=== PATIENT | male | born 1950 | race Caucasian/White ===

== ENCOUNTER 2018-06-04 11:42 | Inpatient (IN) ==
[2018-06-04] MEDS ORDERED: VANCOMYCIN 1 GM/NS 1 GM/250 ML IVPB IV ONE (12:14)
[2018-06-04] MEDS ORDERED: ZOFRAN IV PRN (12:14)
[2018-06-04] MEDS ORDERED: TYLENOL PO PRN (12:14)
--- NOTE | 2018-06-04 12:24 | HISTORY AND PHYSICAL ---
HISTORY OF PRESENT ILLNESS: This is a 68-year-old patient well known to me with past medical history of: 1. Arrhythmia. 2. Abnormal EKG. 3. Coronary artery disease. On 02/05/2013, he had a percutaneous transluminal coronary angioplasty to the distal RCA, had previous stent. Ejection fraction at that time 60%. On 08/19/2010, he had a non-ST elevation NC. He then had a PTCA to the LAD and a PTCA to RCA. His ejection fraction at that time was 55% to 60%. 4. Hypertension. 5. Hyperlipidemia. 6. Gastroesophageal reflux disease. 7. History of myocardial infarction, as above. 8. Some osteoarthritis. 9. Benign prostatic hypertrophy. 10. Gastroesophageal reflux. 11. Hyperlipidemia. The patient presented to my office. He stated that last week, he had a cyst, what appeared to be a fluctuant cyst on the right distal arm, and it seems to be resolving. It did have some purulent material. Then, he developed, on his left proximal finger between the interphalangeal joint and the middle, he had another area of swelling that looked like a pustule, but he had swelling and edema that extended from the finger into the hand. He denies any chills, but when he came into my office, he had a temperature of 99.8, which is fever, but concerned about the swelling, concerned about the tenderness, concerned about possibility of developing more aggressive bacterial infections. So, I am going to put him in the hospital and cover him for gram-positive as well as gram-negative. He did go to a park in [place] and he was in the water. He denies known injury to that finger, insect bite, or puncture wound. SOCIAL HISTORY: Negative for alcohol or tobacco. FAMILY HISTORY: Positive for some heart disease, coronary artery disease. He does have positive coronary artery disease in his father and brother. ALLERGIES: He has no known drug allergies. Review of Systems REVIEW OF SYSTEMS: Constitutional: He does not report any weight gain or loss. No fever or chills. HEENT: Unremarkable. Respiratory: No increased work of breathing or dyspnea. Cardiovascular: No chest pain or tachy palpitation. GI/: Past history of gastroesophageal reflux. No change in bowels or urination. Immunologic/Hematologic: No significant history. PHYSICAL EXAMINATION: GENERAL: He is well developed, well nourished, awake and alert, oriented x3, very pleasant. HEENT: Pupils are equal. NECK: He had no distended neck veins. LUNGS: Clear in all lung mason. CARDIOVASCULAR: Regular rhythm and rate without murmur or S3. ABDOMEN: No complaints. No distention. EXTREMITIES: No pedal edema. SKIN: He has no other complaints of rash or oral or nasal mucosa lesions, but on his right wrist, on the radial side, he had a healing subcutaneous infection. On the left 1st proximal finger, he has an active swelling, about a 2 cm swelling/rising with surrounding erythema and edema. ASSESSMENT AND PLAN: 1. Cellulitis and soft tissue infection. Concerned about how rapidly this came up and I want make sure he does not develop a necrotizing type of infection. I am going to cover him for gram-positive and -negative. Will elevate that hand. We will check some labs, check blood cultures, and admit to the hospital. He is not allergic to any antibiotics. I think I will put him on Zosyn and vancomycin at this point. 2. Coronary artery disease. No active ischemia. History of stents. He has a history of myocardial infarction, but has good left ventricular function. 3. Hypertension. 4. Hypercholesterolemia. 5. History of benign prostatic hypertrophy. cc: William Clark MD
[2018-06-04] MEDS ORDERED: VANCOMYCIN IV PER PHARMACY MISC SCH (12:30)
[2018-06-04 13:09] LABS: BASO# 0.04 X1000 (0.0-0.2); BASO% 0.4 % (0.0-0.8); EOS# 0.12 X1000 (0.0-0.7); EOS% 1.1 % (0.0-10.0); HEMATOCRIT 45.5 % (42.0-52.0); HEMOGLOBIN 15.1 g/dL (14.0-18.0); IMM GRAN# 0.02 X1000 (0.0-0.04); IMM GRAN% 0.2 % (0.0-0.5); LYMPH# 1.32 X1000 (1.2-3.4); MCH 31.3 PG (27-31); MCHC 33.2 g/dL (33-37); MCV 94.2 FL (81-99); MONO# 0.86 X1000 (0.11-0.59); MONO% 7.8 % (1.7-9.3); MPV 10.5 FL (7.4-10.4); NEUT# 8.64 X1000 (1.4-6.5); NEUT% 78.5 % (42.2-75.2); PLT 202 X1000 (130-400); RBC 4.83 XMIL (4.7-6.1); RDW 13.8 % (11.5-14.5)
[2018-06-04 13:36] LABS: AGAP 10; ALB/GLOB RATIO 1.8; ALBUMIN 4.8 g/dL (3.5-5.0); ALKALINE PHOSPHATASE 80 U/L (32-122); BUN 16 mg/dL (8-22); CALCIUM 9.5 mg/dL (8.8-10.2); CHLORIDE 100 mmol/L (98-107); COSMO 278; CREATININE 0.9 mg/dL (0.7-1.2); ESTIMATED GFR > 60; GLUCOSE 110 mg/dL (70-104); GOT 14 U/L (10-34); GPT 13 U/L (10-44); POTASSIUM 3.8 mmol/L (3.5-5.1); SODIUM 138 mmol/L (136-145); TCO2 28 mmol/L (25-35); TOTAL BILIRUBIN 0.63 mg/dL (0.20-1.00); TOTAL PROTEIN 7.5 g/dL (6.3-8.3)
[2018-06-04] MEDS: NS 1,000 ML IV SCH (14:37)
[2018-06-04] MEDS: ZOSYN 4.5 GM in NS 100 ML IV SCH ×2 (14:37→20:44)
[2018-06-04] MEDS ORDERED: CLINDAMYCIN 600 MG/NS 600 MG/50 ML IVPB IV SCH (14:45)
[2018-06-04] MEDS ORDERED: VANCOMYCIN 2 GM in NS 500 ML IV ONE (15:00)
[2018-06-04] MEDS ORDERED: CLINDAMYCIN 600 MG/D5W 600 MG/50 ML IVPB IV SCH (15:12)
[2018-06-04] MEDS ORDERED: XYLOCAINE-MPF 2% ONE (16:41)
[2018-06-04] MEDS ORDERED: DIPRIVAN 1% ONE (16:41)
[2018-06-04] MEDS: DILAUDID ONE ×5 (17:44→18:03)
[2018-06-04] MEDS ORDERED: ZOFRAN PO PRN (18:59)
[2018-06-04] MEDS: MORPHINE IV PRN (20:44)
--- NOTE | 2018-06-04 22:06 | INFECTIOUS DISEASE CONSULT REP ---
DATE: 06/04/2018 CONCLUSION: The patient has had 2 episodes of cellulitis. The 1st one was in the right hand and then the 2nd one was in the left hand. These episodes of cellulitis in the hands occurred after the patient was exposed to a dog that the patient's son had as a pet. RECOMMENDATION: I agree with giving the patient vancomycin and Zosyn pending culture result. DISCUSSION: The patient approximately 4 to 5 days ago had some cellulitis develop on his right hand. The patient's son had left his dog with the patient. The patient does not really remember any particular scratch of either hand. After that area cleared up, the patient had a cellulitis involving the left hand, which he has been hospitalized for now. The cellulitis has spread. The patient has not had fever. Patient's CBC shows a white count of 11,000, hemoglobin 15.1, and platelet count 202,000. Creatinine 0.9. GFR is greater than 60. Liver function studies are normal. PAST MEDICAL HISTORY/REVIEW OF SYSTEMS: Eyes and ears: Hearing and vision are okay. The patient wears glasses. Neck: No stiffness. Respiratory: No cough or shortness of breath. Cardiac: No chest pain or palpitations. GI: No nausea, vomiting, or diarrhea. Genitourinary: No dysuria or flank pain. MEDICAL DISEASES: Negative for diabetes and thyroid disease. PREVIOUS HOSPITALIZATIONS AND OPERATIONS: He has had a myocardial infarction and at that admission he had placement of coronary artery stents. He has had renal calculi removed. He has had surgeries on his elbow and ankle. The patient has also had a colonoscopy. MEDICAL DISEASES: Positive for coronary artery disease, myocardial infarction, renal calculi and hypertension. INFECTIOUS DISEASE HISTORY: Negative for pneumonia and UTI. FAMILY HISTORY: Positive for hypertension, myocardial infarction and cancer. SOCIAL HISTORY: The patient lives in [place]. He is . He had been watching his son's dog. Patient has no known drug allergies. He is retired. He does not smoke cigarettes, drink alcoholic beverages or abuse drugs. PHYSICAL EXAMINATION: Temperature is 97.6 degrees, pulse 88, respirations 16, blood pressure 164/93. The patient is 5 feet 7 inches tall, weighs 179 pounds.General: This is an obese, elderly male. He is in no acute distress. Head/eyes/ears/nose/throat: He can hear my spoken words and see near objects. There is no drainage from the nose or ears. Neck: No meningismus. Lungs: Clear to auscultation. Cardiovascular: Regular heart rate. Extremities: The patient's left index finger has erythema and swelling. The patient's right hand has 1 small, ulcerated area where previously he had cellulitis in that area too. Neurologic: Patient is alert. He can move his extremities. There is no tremor. His memory as regarding his medical history was good. Abdomen: Soft and nontender. Thank you for the consult. cc: MD William An MD
[2018-06-05] MEDS: NS 1,000 ML IV SCH ×2 (02:04→18:01)
[2018-06-05] MEDS: ZOSYN 4.5 GM in NS 100 ML IV SCH ×4 (02:04→20:58)
--- NOTE | 2018-06-05 03:55 | OPERATIVE NOTE ---
PROCEDURE DATE: 06/04/2018 DIAGNOSIS: Cellulitis, with abscess, left index, proximal. PROCEDURE: I D. Probable MRSA. DESCRIPTION OF PROCEDURE: The patient was brought to the operating room. After satisfactory induction of IV and LMA anesthesia, his left hand was prepped and draped in the appropriate manner. In the dorsomedial point of the upper digit on the index finger, it was incised longitudinally, with decompression of purulent material. It appears to be MRSA. Wound cultures were obtained. Hemostasis was obtained by electrocautery. The wound was irrigated with peroxide and packed loosely with quarter-inch iodoform. Sterile boxing glove-type dressing was applied. He was awakened and extubated in the operating room, and transferred to recovery. ESTIMATED BLOOD LOSS: About 10 mL. cc: MD William Mercer MD
[2018-06-05 07:13] LABS: BASO# 0.03 X1000 (0.0-0.2); BASO% 0.4 % (0.0-0.8); EOS# 0.16 X1000 (0.0-0.7); EOS% 2.4 % (0.0-10.0); HEMATOCRIT 41.3 % (42.0-52.0); HEMOGLOBIN 13.7 g/dL (14.0-18.0); LYMPH% 19.4 % (20.5-51.1); MCH 31.5 PG (27-31); MCHC 33.2 g/dL (33-37); MCV 94.9 FL (81-99); MONO# 0.62 X1000 (0.11-0.59); MONO% 9.3 % (1.7-9.3); MPV 10.5 FL (7.4-10.4); NEUT# 4.59 X1000 (1.4-6.5); NEUT% 68.5 % (42.2-75.2); PLT 181 X1000 (130-400); RBC 4.35 XMIL (4.7-6.1); RDW 13.8 % (11.5-14.5)
[2018-06-05 07:27] LABS: AGAP 12; BUN 14 mg/dL (8-22); CALCIUM 8.5 mg/dL (8.8-10.2); CHLORIDE 106 mmol/L (98-107); COSMO 284; CREATININE 0.9 mg/dL (0.7-1.2); ESTIMATED GFR > 60; GLUCOSE 100 mg/dL (70-104); POTASSIUM 3.8 mmol/L (3.5-5.1); SODIUM 142 mmol/L (136-145); TCO2 24 mmol/L (25-35)
[2018-06-05] MEDS: MORPHINE IV PRN ×4 (07:49→20:58)
[2018-06-05] MEDS ORDERED: NORCO-7.5 PO PRN (08:40)
[2018-06-05] MEDS: VANCOMYCIN 1.6 GM in NS 250 ML IV SCH (08:57)
--- NOTE | 2018-06-05 09:08 | PROGRESS NOTE ---
DATE: 06/05/2018 SUBJECTIVE: Mr. Castillo had a pretty good night. The swelling and erythema around his finger has diminished. Dr. Waggoner drained about 10 mL of purulent material, and he felt it looked most likely consistent with methicillin-resistant Staphylococcus aureus. He is getting vancomycin and piperacillin, and I am going to leave him here to get another 24 hours of IV antibiotics and plans that maybe he can go home tomorrow. OBJECTIVE: Vital Signs: Temperature 97.5 degrees, pulse 62, respirations 18, blood pressure 121/78. Eyes: Pupils are equal and round. Lungs: Clear in all lung mason. Cardiovascular exam: Regular rhythm and rate without murmur or S3. LABS: Urine output is 2300 mL. Electrolytes: CBC revealed white count was 11,000, repeat today 6700, hematocrit 41, platelet count 181,000. ASSESSMENT AND PLAN: 1. So, we will continue present antibiotics in hopes that he can go home tomorrow. 2. History of coronary artery disease. No sign of active ischemia. 3. Hypertension. 4. Benign prostatic hypertrophy. 5. History of gastroesophageal reflux. Review of his orders: He is getting morphine p.r.n. I will put him on some Lortab p.o. p.r.n. pain. cc: William Clark MD
[2018-06-05] MEDS ORDERED: DIPROSONE 0.05% CREAM TOP PRN (12:20)
[2018-06-05] MEDS: PLAVIX PO SCH (16:22)
[2018-06-05] MEDS: ASPIRIN PO SCH (16:23)
[2018-06-05] MEDS: CLARITIN PO SCH (16:25)
[2018-06-05] MEDS: ZYLOPRIM PO SCH (16:25)
[2018-06-05] MEDS: TOPROL XL PO SCH (16:25)
[2018-06-05] MEDS: PRINIVIL PO SCH (16:25)
[2018-06-05] MEDS: VITAMIN D PO SCH (16:25)
[2018-06-05] MEDS: VITAMIN E PO SCH (16:26)
[2018-06-05] MEDS: VOLTAREN PO SCH (16:28)
[2018-06-05] MEDS ORDERED: HYDROGEN PEROXIDE SOLUTION TOP ONE (16:58)
[2018-06-05] MEDS: AMBIEN PO SCH (20:58)
[2018-06-05] MEDS: CRESTOR PO SCH (20:58)
[2018-06-05] MEDS: NORVASC PO SCH (20:58)
[2018-06-05] MEDS: IMDUR PO SCH (20:58)
[2018-06-05] MEDS: FLOMAX PO SCH (20:58)
[2018-06-06] MEDS: ZOSYN 4.5 GM in NS 100 ML IV SCH (01:37)
[2018-06-06] MEDS: VANCOMYCIN 1.6 GM in NS 250 ML IV SCH ×2 (03:18→22:05)
[2018-06-06] MEDS: PRILOSEC PO SCH (06:28)
[2018-06-06] MEDS ORDERED: MOTRIN PO PRN (08:19)
--- NOTE | 2018-06-06 08:58 | PROGRESS NOTE ---
DATE: 06/06/2018 SUBJECTIVE: Mr. Castillo is feeling better. Left hand is wrapped, first finger. The culture from the wound did grow back Staphylococcus aureus which was resistant to oxacillin so methicillin- resistant staphylococcus. He is feeling better. The swelling around the hand is improved. PHYSICAL EXAMINATION: Vital Signs: Temperature 97.9 degrees, pulse 64 respirations 22, blood pressure 124/80. HEENT: Pupils are equal. No distended neck veins. Lungs: Clear in all lung mason. Cardiovascular Examination: Regular rhythm and rate without murmur or S3. Abdomen: Soft. Skin: Warm and dry. Is and Os: Urine output is 2400 mL. LABORATORY DATA,: Blood sugar 140, 79, and 90. ASSESSMENT AND PLAN: 1. Soft tissue abscess with surrounding cellulitis in the left first finger at the first metatarsal. No sign of bone involvement. Abscess was drained, about 10 mL. Culture grew methicillin-resistant staphylococcus. Continue present antibiotics. Seems to be improving. Hopefully, he can go home tomorrow. We will see what Dr. Waggoner says. 2. Coronary artery disease. No sign of active ischemia. 3. Hypertension. 4. Benign prostatic hypertrophy. 5. Gastroesophageal reflux. cc: William Clark MD
[2018-06-06] MEDS: PRINIVIL PO SCH (09:22)
[2018-06-06] MEDS: ZYLOPRIM PO SCH (09:22)
[2018-06-06] MEDS: PLAVIX PO SCH (09:27)
[2018-06-06] MEDS: NORVASC PO SCH (09:27)
[2018-06-06] MEDS: TOPROL XL PO SCH (09:27)
[2018-06-06] MEDS: VITAMIN D PO SCH (09:27)
[2018-06-06] MEDS: CLARITIN PO SCH (09:27)
[2018-06-06] MEDS: NS 1,000 ML IV SCH ×2 (09:28→21:47)
[2018-06-06] MEDS: VITAMIN E PO SCH (09:28)
[2018-06-06] MEDS: ASPIRIN PO SCH (09:28)
[2018-06-06] MEDS: IMDUR PO SCH (09:28)
[2018-06-06] MEDS: VOLTAREN PO SCH ×2 (09:30→09:31)
[2018-06-06] MEDS: FLOMAX PO SCH (21:46)
[2018-06-06] MEDS: AMBIEN PO SCH (21:46)
[2018-06-06] MEDS: CRESTOR PO SCH (21:46)
[2018-06-07] MEDS: PRILOSEC PO SCH (06:15)
[2018-06-07] MEDS: CLARITIN PO SCH (08:15)
[2018-06-07] MEDS: NORVASC PO SCH (08:15)
[2018-06-07] MEDS: PLAVIX PO SCH (08:15)
[2018-06-07] MEDS: IMDUR PO SCH (08:15)
[2018-06-07] MEDS: PRINIVIL PO SCH (08:15)
[2018-06-07] MEDS: TOPROL XL PO SCH (08:15)
[2018-06-07] MEDS: VITAMIN E PO SCH (08:15)
[2018-06-07] MEDS: ZYLOPRIM PO SCH (08:15)
[2018-06-07] MEDS: VOLTAREN PO SCH (08:15)
[2018-06-07] MEDS: VITAMIN D PO SCH (08:16)
[2018-06-07] MEDS: ASPIRIN PO SCH (08:16)
--- NOTE | 2018-06-07 09:51 | INFECTIOUS DISEASE PROGRESS NO ---
DATE: 06/07/2018 PRESENT ILLNESS: The patient is status post incision and drainage of infected left index finger. Culture from the finger grew methicillin-resistant Staphylococcus aureus. MEDICATIONS: Currently, the patient is receiving IV vancomycin. PHYSICAL EXAMINATION: Vital Signs: Temperature is 97.8 degrees, pulse 68, respirations 15, blood pressure 155/84. General: This is a healthy-appearing elderly male. He is in no acute distress. Head/Eyes/Ears/Nose/Throat: He can hear my spoken words and see near objects. He does not have any white coating to his tongue. Neck: Not stiff. Lungs: Clear to auscultation. Cardiovascular: Regular heart rate. Abdomen: Soft and nontender. Neurologic : The patient is alert. He ambulates without difficulty. There is no tremor. Extremities: The patient's left index finger has a dressing around it. The dressing is intact. On the patient' s right hand, there is a small nodular lesion where he previously had infection prior to having the more larger infection on his left finger. The nodule is much smaller, and it is not tender and it is not draining. LABORATORY AND X-RAY: CBC shows a white count of 6700, hemoglobin 13.7, and platelet count 181,000. Creatinine is 0.9, GFR is greater than 60. ASSESSMENT AND PLAN: I discussed with Dr. Waggoner the plan of treatment for the patient. The plan is to send the patient home tomorrow on an oral antibiotic. I have made a prescription for doxycycline 100 mg p.o. every 12 hours for 1 week with 1 refill. The patient will be given an appointment to come to my office in 1 week. COMORBIDITIES: The patient's comorbidity, about the only thing I could come up with is that when he got his infections, he was taking care of a dog of his son, and possibly there was a dog scratch which could have caused the infections. cc: MD William An MD MTDD
--- NOTE | 2018-06-07 10:05 | PROGRESS NOTE ---
DATE: 06/07/2018 SUBJECTIVE: Mr. Alcala says he is feeling better. Left hand is wrapped. He has no fever. OBJECTIVE: Vital Signs: Temperature 97.8 degrees, pulse 68, respirations 15, blood pressure 155/84. HEENT: Pupils are equal and round. Lungs: Clear in all lung mason. Cardiovascular Examination: Regular rhythm and rate without murmur or S3. Abdomen: Soft. Skin: Warm, dry. Is and Os: Urine output 1200 mL. ASSESSMENT AND PLAN: 1. Cellulitis and abscess in the left medial index finger. Dr. Kane Waggoner did an incision and drainage. It appears to be improving. I feel he will benefit from another 24 hours of antibiotic. 2. History of coronary artery disease. Aware. 3. Hypertension. 4. History of benign prostatic hypertrophy. 5. History of gastroesophageal reflux. 6. We will continue his antibiotics. He does have a small what feels subcutaneous abscess on the right distal wrist. Hopefully, he can be discharged tomorrow. He is on only vancomycin. cc: William Clark MD
[2018-06-07] MEDS: NS 1,000 ML IV SCH ×2 (12:00→22:01)
[2018-06-07] MEDS: VANCOMYCIN 1.2 GM in NS 250 ML IV SCH (17:18)
[2018-06-07] MEDS: FLOMAX PO SCH (21:55)
[2018-06-07] MEDS: CRESTOR PO SCH (21:55)
[2018-06-07] MEDS: AMBIEN PO SCH (21:55)
[2018-06-07] MEDS: MORPHINE IV PRN (22:04)
[2018-06-08] MEDS: NS 1,000 ML IV SCH (01:07)
[2018-06-08] MEDS: PRILOSEC PO SCH (06:32)
[2018-06-08] MEDS: PLAVIX PO SCH (08:26)
[2018-06-08] MEDS: NORVASC PO SCH (08:26)
[2018-06-08] MEDS: CLARITIN PO SCH (08:26)
[2018-06-08] MEDS: ZYLOPRIM PO SCH (08:26)
[2018-06-08] MEDS: ASPIRIN PO SCH (08:26)
[2018-06-08] MEDS: PRINIVIL PO SCH (08:26)
[2018-06-08] MEDS: TOPROL XL PO SCH (08:27)
[2018-06-08] MEDS: VITAMIN E PO SCH (08:27)
[2018-06-08] MEDS: IMDUR PO SCH (08:27)
[2018-06-08] MEDS: VITAMIN D PO SCH (08:27)
[2018-06-08] MEDS: VOLTAREN PO SCH (08:32)
[2018-06-08 09:03] VITALS: BP 134/92
[2018-06-08] MEDS: VANCOMYCIN 1.2 GM in NS 250 ML IV SCH (09:56)
--- NOTE | 2018-06-08 10:34 | DISCHARGE SUMMARY ---
ADMISSION DATE: 06/04/2018 DISCHARGE DATE: 06/08/2018 PAST MEDICAL HISTORY: 1. History of arrhythmia. 2. Abnormal EKG. 3. Coronary artery disease. On 02/05/2013, he had percutaneous transluminal coronary angioplasty of the distal right coronary artery. He has an ejection fraction of 60%. Good left ventricular function documented on 08/19/2010. Had a non-ST elevation myocardial infarction. PTCA to LAD and to the RCA. Ejection fraction 55-60%. 4. Hypertension. 5. Hyperlipidemia. 6. Gastroesophageal reflux disease. 7. History of myocardial infarction. 8. History of arthritis. 9. Benign prostatic hypertrophy. 10. Gastroesophageal reflux disease. 11. Hyperlipidemia. HOSPITAL COURSE: The patient presented with his left index finger swelling. He has had 2 episodes of cellulitis. First one was in his right hand, distal wrist. The second one was in his left hand, index finger. He had been taking care of a pet. There was some question of maybe cellulitis related to the pet. He was put on vancomycin and Zosyn. Dr. Tony Marques and Dr. Kane Waggoner evaluated and the area on his left index finger looked like subcutaneous abscess. This was I and D'ed per Dr. Kane Waggoner and he showed good improvement. Remained afebrile. Cultures grew out methicillin-resistant Staphylococcus aureus. [place] he could go home on 06/08/2018. Follow up for closure with Dr. Waggoner on Thursday. See him back in my office in 2 weeks. We will continue his previous medications, allopurinol 300 mg a day, amlodipine 10 mg a day, aspirin 81 mg a day, vitamin D3 2000 units a day, Plavix 75 mg a day, diclofenac 100 mg a day, eszopiclone 3 mg at bedtime. He takes hydrocodone 10 mg q.6 hours p.r.n., isosorbide 60 mg a day, lisinopril 40 mg a day, Claritin 10 mg a day, Toprol-XL 50 mg a day, nitroglycerin tablet only as needed, omeprazole 40 mg a day, rosuvastatin 40 mg at bedtime, tamsulosin 0.4 mg at bedtime, and vitamin E 2000 units daily. We gave him some doxycycline which he will take 100 mg twice a day. I appreciate Dr. Marques's help. cc: William Clark MD
== END 2018-06-08 12:44 | disposition home or self-care (01) | DRG 580 ==
LOC: DIRADM 11:42 → 3N 12:18
PROVIDERS: ADMIT Emergency Medicine; ATTEND Emergency Medicine
CPT/HCPCS: 80048; 80053; 80202; 82948; 85025; 87070; 87075; 87077; 87186; 87205; 94761; A9270; J1170; J2270; J2543; J3370; J7030; J7040; J7050; XXXXX